=== PATIENT | female | born 1990 | race Caucasian/White ===

== ENCOUNTER 2016-12-09 21:43 | Emergency (ER) | payer SELFPAY ==
[~2016-12-09] VITALS: Ht 162.6 cm; Wt 54.0 kg
[2016-12-09 21:49] VITALS: BP_SYST 115
--- NOTE | 2016-12-09 23:08 | NUR ---
Patient triaged and placed in waiting room. VSS and patient appears in no acute distress at this time. Accompanied by partner , awaiting available bed, and MD notified of need for MSE.
--- NOTE | 2016-12-10 01:00 | NUR ---
Patient called for bed placement, patient unable to be found.
--- NOTE | 2016-12-10 01:05 | NUR ---
Patient not found in ED waiting room. No response when calling patient for bed placement.
--- NOTE | 2016-12-10 01:11 | NUR ---
Patient left without being seen by ER MD.
--- NOTE | 2016-12-10 01:11 | NUR ---
Patient called for bed placement, no answer, unable to find patient in waiting room.
== END 2016-12-10 01:11 | disposition left against medical advice (07) ==
LOC: SED 21:43
DX: R07.89 Other chest pain (principal); Z53.21 Procedure and treatment not carried out due to patient leaving prior to being seen by health care provider
CPT/HCPCS: 71010; 93005; 99281